=== PATIENT | male | born 1975 | race Caucasian/White ===

== ENCOUNTER → 2016-12-18 | Outpatient (CLI) | payer OTHER ==
[~2016-12-18] MED LIST: AGM875 PO; LRT5 PO
--- NOTE | 2016-12-18 13:52 | DIAGNOSTIC IMAGING REPORT ---
LEFT HAND 3 VIEWS CLINICAL HISTORY: Fall with left hand injury. FINDINGS: 3 views of left hand are obtained. No prior studies are available for comparison at the time of dictation. The skeletal structures are well mineralized. There is a minimally distracted and comminuted spiral fracture through the midshaft of the second metacarpal. There is at least 3 mm of offset of the largest fragments, with mild dorsal and ulnar sided distraction of the distal fragment. There is minimal overriding of the fragments as well as mild apex dorsal angulation. Overlying soft tissue edema is noted. No additional fracture is seen. The joint spaces of the hand are preserved. IMPRESSION: Mildly distracted spiral fracture through the midshaft of the second metacarpal as above. Electronically signed by: Prince Felix M.D. 12/18/2016 1:51 PM Dictated Date/Time: 12/18/2016 1:49 PM
== END | disposition home or self-care (01) ==
LOC: C.RAD1850 13:34
PROVIDERS: ATTEND Physician Assistant
DX: S62.391A Other fracture of second metacarpal bone, left hand, initial encounter for closed fracture (principal); X58.XXXA Exposure to other specified factors, initial encounter